=== PATIENT | female | born 1965 | race Caucasian/White ===

== ENCOUNTER 2016-10-08 13:18 | Inpatient (IN) | payer BC, OTHER ==
--- NOTE | 2016-10-08 14:19 | EDPHY ---
H & P Stated Complaint: pt brought in by [facility] for psychiatric evaluation HPI/ROS: CHIEF COMPLAINT: HISTORY OF PRESENT ILLNESS: REVIEW OF SYSTEMS: A ten point review of systems was performed and is negative with the exception of the items mentioned in the HPI. - Personal History LMP (Females 10-55): Post Menopausal Current Tetanus/Diphtheria Vaccine: Unsure Current Tetanus Diphtheria and Acellular Pertussis (TDAP): Unsure - Medical/Surgical History Hx Asthma: No Hx Chronic Respiratory Disease: No Hx Diabetes: No Hx Cardiac Disease: No Hx Renal Disease: No Hx Cirrhosis: No Hx Alcoholism: No Hx HIV/AIDS: No Hx Splenectomy or Spleen Trauma: No Other PMH: psychiatric history. state hospital admissions.dental issues - Social History Smoking Status: Current every day smoker - Physical Exam Exam: General Appearance: Alert. Vital signs reviewed. Eyes: Pupils equal and round, no conjunctival injection, no discharge. Anicteric. ENT, Mouth: Mucous membranes are moist, no oropharyngeal erythema or edema. Neck: No lymphadenopathy, supple. Respiratory: Lungs are clear to auscultation; no wheezes, rales, or rhonchi. Cardiovascular: Regular rate and rhythm; no murmur, rub, or gallop. Gastrointestinal: Abdomen is soft and nontender, no masses or organomegaly, bowel sounds normal. Skin: Warm and dry, no rashes on exposed skin, normal color. Back: Nontender to palpation over the thoracolumbar spine. No CVAT. Extremities: No lower extremity edema, no calf tenderness or swelling. Neurological: Alert and oriented. Moving all four extremities easily and equally. Cranial nerves II through XII are examined and are intact (visual acuity not tested). Strength is 5 over 5 bilaterally with testing of all major motor groups. Sensation is intact to light touch over all 4 extremities. Deep tendon reflexes are 2+ in the biceps and knees bilaterally. Gait is normal. Mqordx-fa-ywla is performed accurately. Psychiatric: Normal affect. Constitutional: Initial Vital Signs Temperature (C) 37.3 C 10/08/16 13:46 Heart Rate 82 10/08/16 13:46 Respiratory Rate 18 10/08/16 13:46 Blood Pressure 109/72 10/08/16 13:46 O2 Sat (%) 95 10/08/16 13:46 O2 Delivery Mode Room Air Allergies/Adverse Reactions: NARCOTICS Allergy (Uncoded 12/17/10 02:33) Home Medications: Medication Instructions Recorded Medical Marijuana 12/17/10 Wellbutrin Unk Dose 09/25/12 Departure - Departure Referrals: NONE *PRIMARY CARE P,. [Primary Care Provider] - As per Instructions Physician Review and Approval Statement: 10/08/16 14:19 Portions of this note were transcribed by the medical device sales. I, Dr. Candice Yanez, personally performed the history, physical exam, and medical decision- making; and confirmed the accuracy of the information in the transcribed note.
[2016-10-08 14:38] LABS: % IMMATURE GRANULYOCYTES 0.3 % (0.0-1.1); ABSOLUTE IMMATURE GRANULOCYTES 0.03 10^3/uL (0.00-0.10); ADD DIFF? NO; ADD MORPH? NO; ADD SCAN? NO; ATYPICAL LYMPHOCYTE FLAG 10 (0-99); FRAGMENT RBC FLAG 0 (0-99); HEMATOCRIT 42.8 % (38.0-47.0); HEMOGLOBIN 14.7 g/dL (12.6-16.3); LEFT SHIFT FLG 0 (0-99); LIPEMIA HEMOLYSIS FLAG 90 (0-99); MEAN CELL HEMOGLOBIN 31.4 pg (27.9-34.1); MEAN CELL HEMOGLOBIN CONCENTR. 34.3 g/dL (32.4-36.7); MEAN CELL VOLUME 91.5 fL (81.5-99.8); MEAN PLATELET VOLUME 11.8 fL (8.7-11.7); PLATELET CLUMPS FLAG 0 (0-99); PLATELET COUNT 243 10^3/uL (150-400); RED BLOOD CELL COUNT 4.68 10^6/uL (4.18-5.33); RED CELL DISTRIBUTION WIDTH 13.7 % (11.5-15.2)
[2016-10-08 14:43] LABS: ANION GAP 13 mEq/L (8-16); CALCIUM 10.3 mg/dL (8.5-10.4); CARBON DIOXIDE 20 mEq/l (22-31); CHLORIDE 110 mEq/L (97-110); CREATININE 0.8 mg/dL (0.6-1.0); ETHANOL SERUM < 10 mg/dL (0-10); GLOMERULAR FILTRATION RATE > 60; GLUCOSE 108 mg/dL (70-100); SODIUM 143 mEq/L (134-144)
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
[2016-10-09] MEDS ORDERED: MAG HYDROX/AL HYDROX/SIMETH 30 ML UDCUP PO PRN (01:49)
[2016-10-09] MEDS ORDERED: MAGNESIUM HYDROXIDE 30 ML UDCUP PO PRN (01:49)
[2016-10-09] MEDS ORDERED: OLANZapine 5 MG TAB PO PRN (01:50)
[2016-10-09] MEDS: ACETAMINOPHEN 325 MG TAB PO PRN ×3 (09:13→23:09)
--- NOTE | 2016-10-09 12:29 | GCON ---
[f rep st] CONSULTATION INTERNAL MEDICINE CONSULTATION DATE OF CONSULTATION: 10/09/2016 REASON FOR CONSULTATION: Medical clearance for inpatient psychiatric treatment. HISTORY OF PRESENT ILLNESS: This is a 51-year-old female with a history of bipolar and therese who pr esented with paranoid behavior and is now on an M1 hold. She does not have any current medical prob lems. Is not taking any medications. She denies any physical complaints. REVIEW OF SYSTEMS: A 10-point review of systems was obtained and was negative. PAST MEDICAL HISTORY: 1. Bipolar. 2. History of cholecystectomy. 3. History of hernia repair. SOCIAL HISTORY: Occasional alcohol and marijuana use. Does smoke cigarettes. Is . FAMILY HISTORY: Reviewed and noncontributory. PHYSICAL EXAM: VITAL SIGNS: Afebrile. Blood pressure is 130/87, heart rate 56, oxygen saturation 96% on room air. GENERAL: The patient is well developed, no apparent distress. HEENT: Nonicteric sclerae. Extraocular movements intact. Moist mucous membranes. NECK: Supple. No thyromegaly. LUNGS: Good effort. Clear to auscultation bilaterally. CARDIOVASCULAR: Regular rate and rhythm. No murmurs or gallops. ABDOMEN: Positive bowel sounds, soft, nontender, nondistended. No hepatos plenomegaly. EXTREMITIES: No clubbing, cyanosis, or edema. SKIN: Without rash. Warm, intact. N EUROLOGIC: Alert and oriented x3. LABS: CBC is normal. Chemistry is normal. U-tox is negative. ASSESSMENT: This is a 51-year-old female, being hospitalized for bipolar exacerbation. She is medi vineet cleared for inpatient psychiatric treatment. /[id number]/MODL
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
[2016-10-09] MEDS: CETIRIZINE 10 MG TAB PO SCH ×2 (21:39→21:43)
[2016-10-10] MEDS: ACETAMINOPHEN 325 MG TAB PO PRN (03:40)
[2016-10-10] MEDS: CETIRIZINE 10 MG TAB PO SCH (08:17)
[2016-10-10] MEDS: ACETAMINOPHEN 500 MG TAB PO PRN ×2 (11:04→17:01)
--- NOTE | 2016-10-10 21:13 | SOAPPROG ---
SOAP Progress Note Assessment/Plan: Assessment: 51yo CF with hx of BMD, possible delusional d/o, +THC dependence and EtOH use d/ o 10/10/16 17:00 Per staff, slept 3.5 hr last night but "all day" in bed the day or shift prior. Pt resting in bed during interview, denied any acute complaints, no physical problems, and adamantly refuses any offer of psychotropic medications, stating she has been under the best treatment in the main [facility] ( [place]) where they told her nothing was wrong with her, and that she has been on many different meds but had no benefit only side effects, and pt maintains that all problems are due to her and son which is why she is glad to be here away from them. "I was even glad to be away from them when I was in assisted" for several months in the past. MSE: generally calm, cooperative, casually dressed, long hair, fair eye contact , nml psychom activity, speech nml rate/vol, mood "fine", affect calm but became irritable and slightly escalated when t/a her and brother, but was redirectable. denied any SI/HI. TP/TC somewhat rambling and tangential and with paranoid delusions. did not appear responding to int stim. no insight, poor/impaired judgment. Plan: cont on MHH, possibly needs STC. has no insight into psych illness or need for meds refuses offer of any psychotropic meds. continue unit structure, encourage groups Objective: Vital Signs Temp Pulse Resp BP Pulse Ox 36.6 C 48 L 12 139/83 H 96 10/10/16 06:30 10/10/16 06:30 10/10/16 06:30 10/10/16 06:30 10/10/16 06:30 - Time Spent With Patient Time Spent With Patient: 15min - Pending Discharge Pending Discharge Within 24 Hours: No Pending Discharge Within 48 Hours: No ICD10 Worksheet Patient Problems: Problems Problem Status Onset Psychosis Acute
[2016-10-11] MEDS: ACETAMINOPHEN 500 MG TAB PO PRN ×3 (02:10→20:55)
[2016-10-11] MEDS: CETIRIZINE 10 MG TAB PO SCH (08:28)
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
[2016-10-11] MEDS: LORazepam 0.5 MG TAB PO PRN ×2 (16:10→20:54)
[2016-10-11] MEDS: NICOTINE POLACRILEX 2 MG GUM B PRN (17:55)
[2016-10-12] MEDS: ACETAMINOPHEN 500 MG TAB PO PRN ×3 (08:19→21:48)
[2016-10-12] MEDS: CETIRIZINE 10 MG TAB PO SCH (08:20)
[2016-10-12] MEDS: NICOTINE POLACRILEX 2 MG GUM B PRN ×3 (08:35→18:37)
[2016-10-12] MEDS: LORazepam 0.5 MG TAB PO PRN ×3 (11:45→21:49)
--- NOTE | 2016-10-12 17:33 | SOAPPROG ---
SOAP Progress Note Assessment/Plan: Assessment: Plan: 10/11/16 15:18 Remains delusional, agitated if confronted on this or medications are discussed. Will place on STC, likely submit petition for COM. 10/12/16 17:34 REmains quite psychotic. Will submit for COM. Continue to build therapeutic alliance. Subjective: Pt seen, discussed with staff. Reports feeling "really sad and upset." Remains focused on being persecuted by her and son. Also perseverates on her home being contaminated and her being a bearer of disease. Continues to adamantly refuse any medication other than lorazepam. Becomes angry when I attempt to discuss with her but persists in conversation and then thanks me afterward for spending time with her. She agrees to have her come in for a family meeting. Objective: Vital Signs Temp Pulse Resp BP Pulse Ox 36.7 C 42 L 12 128/73 H 97 10/12/16 06:00 10/12/16 06:00 10/12/16 06:00 10/12/16 06:00 10/12/16 06:00 MSE: Marginally groomed, guarded, though conversant. Affect is blunted, though irritable. Mood is "bad." TP perseverative on persecutory themes. TC reveals persecutory/paranoid delusions, IOR's, irrational contamination fears. - Time Spent With Patient Time Spent With Patient: 25" ICD10 Worksheet Patient Problems: Problems Problem Status Onset Psychosis Acute
[2016-10-13] MEDS: ACETAMINOPHEN 500 MG TAB PO PRN ×3 (04:45→22:00)
[2016-10-13] MEDS: LORazepam 0.5 MG TAB PO PRN ×5 (05:02→23:12)
[2016-10-13] MEDS: NICOTINE POLACRILEX 2 MG GUM B PRN ×4 (10:15→23:17)
[2016-10-13] MEDS: CETIRIZINE 10 MG TAB PO SCH (10:15)
--- NOTE | 2016-10-13 15:28 | SOAPPROG ---
SOAP Progress Note Assessment/Plan: Assessment: Plan: 10/11/16 15:18 Remains delusional, agitated if confronted on this or medications are discussed. Will place on ST, likely submit petition for COM. 10/12/16 17:34 REmains quite psychotic. Will submit for COM. Continue to build therapeutic alliance. 10/13/16 15:31 No change. continues to refuse antipsychotic medications. Will CCM, continue to build therapeutic alliance, schedule family meeting with at least and await COM hearing. Subjective: Pt seen, discussed with staff. Reports feeling "bad because I'm in here." Isolating in her room except for meals. Engaging with me, though becomes quite agitated when I attempt to discuss her treatment including meds. She states she is here "because you have violated my freedom of speech and confucianist." She states her and son are persecuting her "because they are Confucianist and I am many religions and no confucianist." She states, "My confucianist is communication and no one will listen to me so it's a violation of my freedom of confucianist." She then relates this to writing to the motorcycle police officer, Robbin Garcia. Objective: Vital Signs Temp Pulse Resp BP Pulse Ox 36.5 C 48 L 12 116/82 H 96 10/13/16 06:00 10/13/16 06:00 10/13/16 06:00 10/13/16 06:00 10/13/16 06:00 MSE: Calm at first, becomes agitated later in interview. Affect is labile, irritable at times, tearful at others. Mood is "terrible because I'm here." TP tangential, perseverating on persecutory themes to the exclusion of all other topics or responses to direct questions. TC reveals persecutory delusions and IOR's. - Time Spent With Patient Time Spent With Patient: 25" ICD10 Worksheet Patient Problems: Problems Problem Status Onset Psychosis Acute
[2016-10-14] MEDS: LORazepam 0.5 MG TAB PO PRN ×4 (03:58→23:10)
[2016-10-14] MEDS: ACETAMINOPHEN 500 MG TAB PO PRN ×3 (08:25→23:14)
[2016-10-14] MEDS: NICOTINE POLACRILEX 2 MG GUM B PRN ×5 (08:26→23:12)
[2016-10-14] MEDS: CETIRIZINE 10 MG TAB PO SCH (08:26)
[2016-10-14] MEDS: IBUPROFEN 600 MG TAB PO PRN ×3 (09:22→23:09)
--- NOTE | 2016-10-14 11:18 | SOAPPROG ---
SOAP Progress Note Assessment/Plan: Assessment: Odontogenic pain, gingivitis, possible odontogenic infection. Will treat with clindamycin 300 mg QID. If no response after a day, may d/c. Follow-up with dentist after discharge. 10/14/16 11:18 Subjective: ATSP re mouth pain. She reports missing a cap on a right maxillary molar an adjacent one with pain. Denies f/c. Objective: Vital Signs Temp Pulse Resp BP Pulse Ox 36.4 C 53 L 12 135/86 H 99 10/14/16 05:58 10/14/16 05:58 10/14/16 05:58 10/14/16 05:58 10/14/16 05:58 Physical Exam - Physical Exam General Appearance: WD/WN, alert, no apparent distress EENT: pharynx normal, other (R maxillary premolar # 13 with gingivitis, no swelling or purulence. # 14 absent. 1st molar # 15 with gingivitis. Tender over cheek over approximately #13 - 15.) Neck: non-tender, supple, No lymphadenopathy (R) Respiratory: No respiratory distress, No accessory muscle use Skin: normal color, warm/dry ICD10 Worksheet Patient Problems: Problems Problem Status Onset Psychosis Acute
[2016-10-14] MEDS: CLINDAMYCIN 150 MG CAP PO SCH ×3 (12:21→23:33)
--- NOTE | 2016-10-14 16:13 | SOAPPROG ---
SOAP Progress Note Assessment/Plan: Assessment: Plan: 10/11/16 15:18 Remains delusional, agitated if confronted on this or medications are discussed. Will place on STC, likely submit petition for COM. 10/12/16 17:34 REmains quite psychotic. Will submit for COM. Continue to build therapeutic alliance. 10/13/16 15:31 No change. continues to refuse antipsychotic medications. Will CCM, continue to build therapeutic alliance, schedule family meeting with at least and await COM hearing. 10/14/16 16:12 Remains delusional. Grave disability persists due to pt's inability to properly interpret reality and the influence of her delusions on her behaviors and decision-making. Subjective: Pt seen, discussed with staff. Continues to isolate in her room, paranoid, reclusive. Tearful when discussing relationship with her and son. Continues to believe we are all part of a plot against her to deprive her of her liberty for no reason. Unable to meaningfully discuss her illness or care. Objective: Vital Signs Temp Pulse Resp BP Pulse Ox 36.4 C 53 L 12 135/86 H 99 10/14/16 05:58 10/14/16 05:58 10/14/16 05:58 10/14/16 05:58 10/14/16 05:58 - Time Spent With Patient Time Spent With Patient: 15" ICD10 Worksheet Patient Problems: Problems Problem Status Onset Psychosis Acute
[2016-10-15] MEDS: LORazepam 0.5 MG TAB PO PRN ×5 (04:07→22:49)
[2016-10-15] MEDS: NICOTINE POLACRILEX 2 MG GUM B PRN ×7 (04:07→22:51)
[2016-10-15] MEDS: CLINDAMYCIN 150 MG CAP PO SCH ×3 (05:42→17:41)
[2016-10-15] MEDS: ACETAMINOPHEN 500 MG TAB PO PRN ×3 (05:42→18:06)
[2016-10-15] MEDS: IBUPROFEN 600 MG TAB PO PRN ×3 (08:15→22:50)
[2016-10-15] MEDS: CETIRIZINE 10 MG TAB PO SCH (08:15)
--- NOTE | 2016-10-15 15:20 | SOAPPROG ---
SOAP Progress Note Assessment/Plan: Assessment: Plan: 10/11/16 15:18 Remains delusional, agitated if confronted on this or medications are discussed. Will place on ST, likely submit petition for COM. 10/12/16 17:34 REmains quite psychotic. Will submit for COM. Continue to build therapeutic alliance. 10/13/16 15:31 No change. continues to refuse antipsychotic medications. Will CCM, continue to build therapeutic alliance, schedule family meeting with at least and await COM hearing. 10/14/16 16:12 Remains delusional. Grave disability persists due to pt's inability to properly interpret reality and the influence of her delusions on her behaviors and decision-making. 10/15/16 15:22 No change clinically. Remains delusional and gravely disabled. CCM. Subjective: Pt seen, discussed with staff. Reports feeling "sleepy". Lying in bed at 1330 when I enter the room. Limited interaction. States she feels "pretty good." COntinues to isolate in her room. Appears paranoid and guarded in milieu. No change in intensity or intrusiveness of her delusions. Objective: Vital Signs Temp Pulse Resp BP Pulse Ox 36.3 C 58 L 14 125/75 H 96 10/15/16 06:00 10/15/16 06:00 10/15/16 06:00 10/15/16 06:00 10/15/16 06:00 MSE: Calm, coop. Affect is blunted, stable. Mood is "fine." TP linear with continued perseveration on delusional systems. TC reveals continues paranoid/ persecutory delusions, IOR's, irrational contamination fears. - Time Spent With Patient Time Spent With Patient: 15" ICD10 Worksheet Patient Problems: Problems Problem Status Onset Psychosis Acute
[2016-10-16] MEDS: CLINDAMYCIN 150 MG CAP PO SCH ×4 (00:02→17:07)
[2016-10-16] MEDS: ACETAMINOPHEN 500 MG TAB PO PRN ×3 (00:02→18:16)
[2016-10-16] MEDS: IBUPROFEN 600 MG TAB PO PRN ×2 (05:14→13:48)
[2016-10-16] MEDS: NICOTINE POLACRILEX 2 MG GUM B PRN ×4 (05:15→18:25)
[2016-10-16] MEDS: CETIRIZINE 10 MG TAB PO SCH (08:04)
[2016-10-16] MEDS: LORazepam 0.5 MG TAB PO PRN ×3 (11:15→21:54)
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
[2016-10-17] MEDS: IBUPROFEN 600 MG TAB PO PRN ×2 (00:09→12:19)
[2016-10-17] MEDS: CLINDAMYCIN 150 MG CAP PO SCH ×4 (00:09→17:18)
[2016-10-17] MEDS: LORazepam 0.5 MG TAB PO PRN ×4 (06:02→22:42)
[2016-10-17] MEDS: NICOTINE POLACRILEX 2 MG GUM B PRN ×6 (06:03→20:46)
[2016-10-17] MEDS: ACETAMINOPHEN 500 MG TAB PO PRN ×2 (06:05→15:52)
[2016-10-17] MEDS: CETIRIZINE 10 MG TAB PO SCH (12:18)
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
[2016-10-18] MEDS: CLINDAMYCIN 150 MG CAP PO SCH ×4 (00:08→16:54)
[2016-10-18] MEDS: IBUPROFEN 600 MG TAB PO PRN (00:08)
[2016-10-18] MEDS: LORazepam 0.5 MG TAB PO PRN (06:48)
[2016-10-18] MEDS: NICOTINE POLACRILEX 2 MG GUM B PRN ×4 (06:51→14:22)
[2016-10-18] MEDS: ACETAMINOPHEN 500 MG TAB PO PRN ×2 (09:13→17:32)
[2016-10-18] MEDS: CETIRIZINE 10 MG TAB PO SCH (09:13)
[2016-10-18] MEDS ORDERED: LORazepam 0.5 MG TAB PO PRN (10:49)
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
[2016-10-19] MEDS: CLINDAMYCIN 150 MG CAP PO SCH ×4 (00:26→17:29)
[2016-10-19] MEDS: CETIRIZINE 10 MG TAB PO SCH (08:03)
[2016-10-19] MEDS: ACETAMINOPHEN 500 MG TAB PO PRN ×2 (08:03→14:47)
[2016-10-19] MEDS: NICOTINE POLACRILEX 2 MG GUM B PRN ×3 (09:26→17:48)
[2016-10-19] MEDS: IBUPROFEN 600 MG TAB PO PRN (17:38)
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
[2016-10-20] MEDS: CLINDAMYCIN 150 MG CAP PO SCH ×5 (00:19→23:32)
[2016-10-20 05:51] VITALS: TEMP 97.5; O2SAT 97
[2016-10-20] MEDS: ACETAMINOPHEN 500 MG TAB PO PRN (12:43)
[2016-10-20] MEDS: NICOTINE POLACRILEX 2 MG GUM B PRN ×2 (12:43→18:22)
[2016-10-20] MEDS: CETIRIZINE 10 MG TAB PO SCH (12:43)
--- NOTE | 2016-10-20 17:41 | SOAPPROG ---
SOAP Progress Note Assessment/Plan: Assessment: 51yo CF with hx of delusional d/o, ?BMD, +THC dependence and hx EtOH use d/o 10/20/16 7:42 per staff, slept well, not taking any psychotropic meds, but does take ABXs same complaints about her and son is on behav plan for toilet paper/paper towels etc use due to toilet plugging, better behaviors today, has been engaging with peers. met with patient briefly today. states she spoke with her court-appointed atty today and patient feels she was told that she will discharge tomorrow. I informed patient I was not aware of such a plan but she needed to talk with her primary team. she reported no physical complaints. "finally this is the first day I'm able to chew without any pain". using prn tylenol. continues on ABXs for tooth abscess. reports no diarrhea but indicates she finally had a large BM MSE: casually dressed, long hair, groomed, good eye contact, nml psychom activity, speech nml rate/vol,easily engaging, talkative but redirectable, mood "I'm good, unless you are here to give me bad news", affect full, TP/TC - generally linear, rambling at times. complains about and son and condition of her home, but was redirectible. no overt delusional statements, but somehow feels she has been told she will be d/cd tomorrow. denied si/hi or any ah/vh. i/j imparied, cognition conversationally intact Plan: -on [employer] w/xzoops request. altho may not be continued depeinding on discussion w/ primary team and court-appt atty, pt believes she will be d/cd soon but this needs clarification tomorrow -has refused any psychotropic meds, and has not met any criteria for Emeds. -continue unit structure, behav plan, encourage groups, -cont on ABXs for tooth abscess. discussed w/pt clearly about need to f/u for this abscess and take ABXs as Rxd until stop date, which will need clarification prior to d/c. informed of risks of not taking ABXs properly, over or undertaking. expressed annoyance that likely won't want to pay for any f/u medical bills if she tries to f/u with a dentist. encouraged to f/u w/ someone who takes her insurance and can always set up a payment plan, and d/w this with cc in AM. Objective: Vital Signs Temp Pulse Resp BP Pulse Ox 36.4 C 56 L 16 110/69 97 10/20/16 05:50 10/20/16 05:50 10/20/16 05:50 10/20/16 05:50 10/20/16 05:50 Medications Generic Name Dose Route Start Last Admin Trade Name Freq PRN Reason Stop Dose Admin Acetaminophen 1,000 mg 10/10/16 10:56 10/17/16 15:52 Tylenol PO 04/08/17 10:55 1,000 mg Q6H PRN Pain, Mild/Fever, Can Take PO Cetirizine HCl 10 mg 10/09/16 21:15 10/17/16 12:18 Zyrtec PO 04/07/17 21:14 10 mg DAILY CRISTY Clindamycin 300 mg 10/14/16 12:00 10/17/16 17:18 Clindamycin PO 11/13/16 11:59 300 mg Q6HRS CRISTY Protocol Ibuprofen 600 mg 10/14/16 08:44 10/17/16 12:19 Motrin PO 04/12/17 08:43 600 mg Q6HRS PRN Pain, Inflammatory Lorazepam 0.5 - 1 mg 10/09/16 01:51 10/17/16 17:18 Ativan PO 04/07/17 01:50 1 mg Q4 PRN ANXIETY Olanzapine 5 mg 10/09/16 01:50 Olanzapine PO 04/07/17 01:49 Q4 PRN AGGITATION Cetirizine HCl 10 mg 10/09/16 21:15 10/20/16 12:43 Zyrtec PO 04/07/17 21:14 10 mg DAILY CRISTY Clindamycin 300 mg 10/14/16 12:00 10/20/16 12:44 Clindamycin PO 11/13/16 11:59 300 mg Q6HRS CRISTY Protocol Lorazepam 0.5 mg 10/18/16 10:49 10/18/16 14:21 Ativan PO 04/16/17 10:48 0.5 mg Q4 PRN ANXIETY Nicotine Polacrilex 2 mg 10/09/16 01:49 10/20/16 12:43 Nicorette B 04/07/17 01:48 2 mg Q1H PRN NICOTINE WITHDRAWAL - Time Spent With Patient Time Spent With Patient: 15min - Pending Discharge Pending Discharge Within 24 Hours: No Pending Discharge Within 48 Hours: No ICD10 Worksheet Patient Problems: Problems Problem Status Onset Psychosis Acute
[2016-10-21] MEDS: CLINDAMYCIN 150 MG CAP PO SCH ×2 (06:08→12:06)
[2016-10-21] MEDS: NICOTINE POLACRILEX 2 MG GUM B PRN (06:10)
[2016-10-21 06:13] VITALS: BP 126/65; PULSE 48; RESP 12
[2016-10-21] MEDS: CETIRIZINE 10 MG TAB PO SCH (08:47)
--- NOTE | 2016-10-21 19:47 | BDS ---
[f rep st] BEHAVIORAL HEALTH DISCHARGE SUMMARY REASON FOR ADMISSION: Patient is a 51-year-old female with an apparent longstanding histo ry of paranoid delusions. She was brought into the emergency department by her , who said th at she had been acting erratically. This has been worsening over several weeks in the setting of he r using daily marijuana and not sleeping. There was some concern that she may have bipolar disorder . The patient's gave the history that this has been present for a number of years, and this is typically centered on behaviors of himself and his son. The patient believes they are directed toward her in a negative way. She also has significant contamination fears, and extended her parano id beliefs to the community at large. Full description of the events preceding admission can be fou nd in her admission history dated 10/09/2016. ADMITTING DIAGNOSES: 1. Bipolar 1 disorder, manic, severe, with psychosis. 2. Possible delusional disorder. 3. Cannabis use disorder, severe. 4. Alcohol use disorder, severity unknown. 5. Family conflict, possible legal problems. 6. Chronic illness and recurrent illness. ADMISSION PHYSICAL EXAMINATION: Performed by Dr. Lnysey Tellez revealed no acute physical findings. ADMISSION LABORATORY: CBC was normal. Serum chemistries were normal. Urine drug screen was negati ve for all substances including marijuana. HOSPITAL COURSE: Patient was admitted to the [facility] inpatient unit on an M1 hold. She was engaging and pleasant, though fairly guarded when I 1st interviewed her. She refused to g enerally leave her room, and I interviewed her in her room. She spoke continuously for at least an hour, telling me that her and her son persecute her and threaten her in the home. She state s that she believes they are both purposefully contaminating the environment, and accused them of tr karie to make her sick. She states that her son leaves a window open in his bedroom so that fibergla ss insulation from the attic blow into the house and directly into the air vents. She also stated t hat he broke light bulbs to release toxic gases in the home. She stated that her put his corbett nds in the cat litter box and refused to wash them, contaminating surfaces in the home and food. Hakeem sims went on to state that she did not trust them and could not sleep at night because she would stay u p worrying about it. She did admit to the marijuana use, though minimized this compared to her husb and's report of daily use. I reviewed with the patient some inconsistencies in her story and some concerns that others have had over time for her paranoia. She adamantly denied this, becoming upset but not angry when I discuss ed the possibility that she had delusions. She steadfastly refused all medications during her admis ricky and would not consider them. At 1 point, I did submit a petition for court-ordered medications to which the patient actually stipulated ultimately. I withdrew the petition believing that she no longer met criteria for short-term certification. The patient also continued to refuse to take any oral medications. Given the nature of her illness, which appeared as time evolved to represent a c hronic delusional disorder and not a bipolar disorder, it was clear that even antipsychotic medicati ons would make much less difference to her clinical state than if this was a product of bipolar diso rder. I met with the patient and her on the day of discharge and discussed discharge plan. She wa s agreeable and seemed actually motivated to follow up with [facility] to seek psychothe rapy. I think she sees this as an ally in some of her accusations against her family. The stated he did not feel unsafe in the home, nor did he feel his son was unsafe. We discussed with em contacting [facility], but the stated he did contact them and they refused to open t he case. Our live in caregiver also contacted them during this stay to voice some concerns for sonali tolbert safety issues with the son, though these were nonspecific. CONDITION ON DISCHARGE: Stable. Her affect was euthymic, stable and appropriate. She continued to demonstrate persecutory delusions, mostly directed at her and son, but made no threatening comments at any time during her stay. She in fact stated that she felt herself threatened in the ho me. DISCHARGE MEDICATIONS: None. DISCHARGE DIAGNOSES: 1. Delusional disorder. 2. Family conflicts. 3. Chronic illness. 4. Cannabis use disorder, severe. 5. Alcohol use disorder, severity unknown. DISPOSITION: Patient left the hospital with her , to return to their home. FOLLOW-UP: With [facility] as scheduled by the live in caregiver on 10/22/2016. LEGAL COURSE: The patient was placed on a short-term certification at the expiration of her M1 hold . The short-term certification was discontinued at the time of her discharge. /[id number]/MODL
== END 2016-10-21 13:00 | disposition home or self-care (01) | DRG 885 ==
LOC: BBEH 10-09 00:50
PROVIDERS: ADMIT Psychiatry & Neurology Psychiatry; ATTEND Psychiatry & Neurology Psychiatry
DX: F22 Delusional disorders (principal); F31.2 Bipolar disorder, current episode manic severe with psychotic features; K04.7 Periapical abscess without sinus; F12.20 Cannabis dependence, uncomplicated; F17.210 Nicotine dependence, cigarettes, uncomplicated; Z72.89 Other problems related to lifestyle
CPT/HCPCS: 80305; G0480